=== PATIENT | male | born 1940 | race Caucasian/White ===

== ENCOUNTER 2017-03-27 06:30 | Day surgery (SDC) | payer MEDICARE, OTHER ==
[~2017-03-27 06:30] MED LIST: Lactated Ringers 1,000 ML IV SCH
[2017-03-27] MEDS ORDERED: Propofol 200 MG/20 ML SDV ONE (07:52)
[2017-03-27] MEDS ORDERED: fentaNYL 100 MCG/2 ML SDV ONE (07:52)
[2017-03-27] MEDS ORDERED: Atropine 0.4 MG/ML SDV ONE (08:06)
[2017-03-27] MEDS ORDERED: Lactated Ringers 1,000 ML ONE (08:40)
[2017-03-27 09:37] VITALS: BP 148/72
--- NOTE | 2017-03-27 16:15 | OR ---
DATE OF SURGERY: 03/27/2017 REFERRING PROVIDER: Anitha Nugent DO PREOPERATIVE DIAGNOSIS: History of colon polyps. The patient's last colonoscopy was in 2012. No family history of colon cancer. POSTOPERATIVE DIAGNOSES: 1. Five total polyps removed. a. 10 mm cecal polyp, removed with hot snare and also cautery to the base of this area. b. 5 mm polyp at 80 cm, removed with cold snare. c. 2 mm and 5 mm polyps at 75 cm, removed with cold forceps and hot snare respectively. d. 2 mm polyp at 20 cm, removed with cold forceps. 2. Moderate left-sided diverticulosis. PROCEDURE: Colonoscopy with polypectomy x5 (2 hot snares, 1 cold snare, and 2 using cold forceps). SURGEON: Nakul Tolentino M.D. ANESTHESIA: Monitored anesthesia care. BOWEL PREP: Good. DESCRIPTION OF PROCEDURE: Yusuf is a 77-year-old male was brought to the endoscopy suite after discussing risks and benefits of the procedure. Informed consent was obtained for conscious sedation and colonoscopy with or without biopsy and/or polypectomy. We also discussed possibility of missed lesions. Pre-procedure exam was unremarkable. IV, oxygen, and monitors were placed. The patient was placed in the left lateral decubitus position. Sedation was administered and a digital rectal exam was performed and was unremarkable except for mild external hemorrhoidal skin tags. Colonoscope was passed into the rectum and slowly advanced all the way to the cecum. Cecum was viewed and photographed. There was noted to be 10 mm sessile cecal polyp, which was removed with hot snare. This required 2 passes of the snare. It did lately cauterize the base as well. The colonoscope was slowly withdrawn and the mucosa was closed observed in a direct circumferential manner. The ascending colon was unremarkable. The transverse colon revealed a 5 mm polyp at 80 cm, removed with cold snare. There were also 2 mm and 5 mm polyps at 75 cm, removed with cold forceps and hot snare respectively. The descending and sigmoid colon were remarkable for some moderate diverticulosis, not acutely inflamed. Sigmoid colon also revealed 2 mm polyp at 20 cm, removed with cold forceps. Retroflexion was performed and rectal mucosa was unremarkable. Scope was removed. The patient tolerated the procedure well. The patient was monitored until that baseline status. Discharge instructions were reviewed and the patient was discharged in good condition. COMPLICATIONS: The patient did require a dose of atropine for some heart block with anesthesia. He was asymptomatic from this except for some bradycardia. TOTAL TIME: 35 minutes. ESTIMATED BLOOD LOSS: 1 mL. RECOMMENDATIONS/FOLLOWUP: We will await results of path report to determine ideal followup interval. We will have the patient hold his aspirin for 3 days to limit any chance of bleeding. I would like to kindly thank, Dr. Anitha Nugent, for this referral. DMB: 03/27/2017 08:56:46 MODL: 03/27/2017 16:04:48 /[id number]
== END 2017-03-27 10:00 | disposition home or self-care (01) ==
LOC: VM.SDS 06:30
PROVIDERS: ATTEND Family Medicine
DX: Z12.11 Encounter for screening for malignant neoplasm of colon (principal); D12.0 Benign neoplasm of cecum; D12.3 Benign neoplasm of transverse colon; K63.5 Polyp of colon; K57.30 Diverticulosis of large intestine without perforation or abscess without bleeding; K64.4 Residual hemorrhoidal skin tags; R00.1 Bradycardia, unspecified; G47.33 Obstructive sleep apnea (adult) (pediatric); I25.10 Atherosclerotic heart disease of native coronary artery without angina pectoris; I10 Essential (primary) hypertension; E78.5 Hyperlipidemia, unspecified; E78.1 Pure hyperglyceridemia; K21.9 Gastro-esophageal reflux disease without esophagitis; E11.21 Type 2 diabetes mellitus with diabetic nephropathy; Z86.73 Personal history of transient ischemic attack (TIA), and cerebral infarction without residual deficits; Z86.010 Personal history of colon polyps; Z98.890 Other specified postprocedural states; Z95.1 Presence of aortocoronary bypass graft; Z79.899 Other long term (current) drug therapy; Z79.4 Long term (current) use of insulin; Z79.82 Long term (current) use of aspirin; Z88.8 Allergy status to other drugs, medicaments and biological substances; Z98.1 Arthrodesis status
CPT/HCPCS: 00810; 45380; 45385; 82962; 88305; J0461; J2704; J3010; J7120

== ENCOUNTER 2017-04-18 11:00 | Emergency (ER) | payer MEDICARE, OTHER ==
--- NOTE | 2017-04-18 11:34 | EDM.PDOC ---
ED HPI GENERAL MEDICAL PROBLEM - General Chief Complaint: Eye Problems Stated Complaint: VISION PROBLEMS Time Seen by Provider: 04/18/17 11:10 Source of Information: Reports: Patient, Family, RN, RN Notes Reviewed History Limitations: Reports: No Limitations - History of Present Illness INITIAL COMMENTS - FREE TEXT/NARRATIVE: Patient presents to the ED at [facility] complaining of vision changes. 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 No headache or other neurological complains. Patient states he feels good otherwise. No CVA symptoms. No chest pain. No SOB. Onset Date: 04/17/17 - Related Data Allergies Allergy/AdvReac Type Severity Reaction Status Date / Time pioglitazone [From Actos] Allergy Swelling Verified 04/18/17 12:25 Home Meds: Home Meds Albiglutide [Tanzeum] 50 mg SQ WEEKLY 03/11/17 [History] Aspirin 325 mg PO BEDTIME 03/11/17 [History] Calcium Carbonate [Calcium] 600 mg PO DAILY 03/11/17 [History] Candesartan Cilexetil 1 tab PO DAILY 03/11/17 [History] Dipyridamole 25 mg PO BID 03/11/17 [History] FLUoxetine [PROzac] 20 mg PO DAILY 03/11/17 [History] Hydrocortisone Butyrate/Emoll [Locoid 0.1% Lipocream] 1 applic TOP DAILY [History] Insulin Glarg,Human.Rec.Analog [LantUS Solostar] 64 unit SQ QAM 03/11/17 [ History] Multivitamin W-Minerals/Lutein [Vision Plus Lutein Vitamin] 1 cap PO DAILY 03/11 [History] Nitroglycerin [Nitrostat] 1 tab SL ASDIRECTED PRN 03/11/17 [History] Omeprazole Magnesium [Prilosec Otc] 20 mg PO QAM 03/11/17 [History] atorvaSTATin [Lipitor] 60 mg PO BEDTIME 03/11/17 [History] metFORMIN HCl [Glucophage] 1,000 mg PO BID 03/11/17 [History] Past Medical History HEENT History: Reports: None Cardiovascular History: Reports: CAD, High Cholesterol, Hypertension Respiratory History: Reports: Sleep Apnea Gastrointestinal History: Reports: Colon Polyp, GERD Genitourinary History: Reports: None Musculoskeletal History: Reports: Arthritis Neurological History: Reports: CVA, Neuropathy, Diabetic, TIA Psychiatric History: Reports: None Endocrine/Metabolic History: Reports: Diabetes, Type II Hematologic History: Reports: None Immunologic History: Reports: None Oncologic (Cancer) History: Reports: None - Past Surgical History Head Surgeries/Procedures: Reports: None HEENT Surgical History: Reports: Cataract Surgery Cardiovascular Surgical History: Reports: Coronary Artery Bypass GI Surgical History: Reports: Colonoscopy, Hernia, Inguinal Male Surgical History: Reports: Circumcision Neurological Surgical History: Reports: Spinal Fusion Musculoskeletal Surgical History: Reports: Shoulder Surgery Oncologic Surgical History: Reports: None Social & Family History - Tobacco Use Smoking Status *Q: Former Smoker Used Tobacco, but Quit: Yes Month Tobacco Last Used: 35 years ago - Recreational Drug Use Recreational Drug Use: No Drug Use in Last 12 Months: No ED ROS GENERAL - Review of Systems Review Of Systems: See Below Constitutional: Denies: Fever, Chills, Weakness HEENT: Reports: Glasses, Vision Change. Denies: Eye Discharge, Eye Pain, Vertigo Respiratory: Denies: Shortness of Breath, Cough Cardiovascular: Denies: Chest Pain, Palpitations Skin: Reports: No Symptoms Neurological: Denies: Dizziness, Headache, Numbness, Paresthesia, Syncope, Tingling, Difficulty Walking, Change in Speech ED EXAM GENERAL W FULL EYE - Physical Exam Exam: See Below Exam Limited By: No Limitations General Appearance: Alert, No Apparent Distress Eye Exam: Bilateral Eye: EOMI, Normal Inspection, PERRL Eyelids: Bilateral: Normal Appearance Conjunctiva & Sclera: Bilateral: Normal Appearance Cornea Exam: Bilateral: Normal Appearance Extraocular Movements: Bilateral: Intact Pupils: Normal Accommodation Pupillary Size: Bilateral: 3 mm Pupillary Reaction: Bilateral: Brisk Neck: Supple Respiratory/Chest: No Respiratory Distress, Lungs Clear, Normal Breath Sounds Cardiovascular: Regular Rate, Rhythm Neurological: Alert, Oriented, CN II-XII Intact Skin Exam: Warm, Dry, Intact, Normal Color, No Rash Course - Orders/Labs/Meds Orders: Active Orders 24 hr Category Date Time Status Head wo Cont [CT] Stat Exams 04/18/17 11:11 Taken Labs: Laboratory Tests 04/18/17 04/18/17 Range/Units 11:22 11:22 WBC 6.7 (4.0-10.0) x10^3/uL RBC 4.11 L (4.5-6.0) x10^6/uL Hgb 12.9 L (14.0-18.0) g/dL Hct 37.8 L (40.0-52.0) % MCV 92.0 (78.0-93.0) fL MCH 31.4 (26.0-32.0) pg MCHC 34.1 (32.0-36.0) g/dL RDW Coeff of Nolvia 12.8 (10.0-15.0) % Plt Count 113 L (130-400) x10^3/uL Neut % (Auto) 60.2 (50.0-80.0) % Lymph % (Auto) 23.2 L (25.0-50.0) % Harding % (Auto) 9.3 (2.0-11.0) % Eos % (Auto) 6.9 H (0.0-4.0) % Baso % (Auto) 0.4 (0.2-1.2) % Sodium 140 (136-145) mmol/L Potassium 5.2 H (3.5-5.1) mmol/L Chloride 106 (98-107) mmol/L Carbon Dioxide 24 (21-32) mmol/L BUN 37 H (7-18) mg/dL Creatinine 1.7 H (0.70-1.30) mg/dL Est Cr Clr Drug Dosing TNP Estimated GFR (MDRD) 39 Glucose 216 H (74-106) mg/dL Calcium 9.4 (8.5-10.1) mg/dL - Radiology Interpretation Free Text/Narrative:: CT of Head: No acute intracranial process; right side sphenoid sinusitis - see scanned document in EMR CT Results Date: 04/18/17 CT Results Time: 12:24 Departure - Departure Time of Disposition: 12:33 Disposition: Home, Self-Care 01 Condition: good Clinical Impression: Vision changes - Discharge Information Referrals: Anitha Nugent DO [Primary Care Provider] - Forms: ED Department Discharge Additional Instructions: 1. Follow up with your professional organizer today in [place] at 3:[address] of Head is normal 3. Blood work is ok - Problem List Review Problem List Initiated/Reviewed/Updated: Yes - My Orders Last 24 Hours: My Active Orders 04/18/17 11:11 Head wo Cont [CT] Stat - Assessment/Plan Last 24 Hours: My Active Orders 04/18/17 11:11 Head wo Cont [CT] Stat
[2017-04-18 11:41] LABS: CHLORIDE,CL 106 mmol/L (98-107); SODIUM,NA 140 mmol/L (136-145)
[2017-04-18 12:34] VITALS: BP 152/60
== END 2017-04-18 12:42 | disposition home or self-care (01) ==
LOC: VM.ED 11:00
DX: H57.8 Other specified disorders of eye and adnexa (principal); E78.00 Pure hypercholesterolemia, unspecified; I10 Essential (primary) hypertension; K21.9 Gastro-esophageal reflux disease without esophagitis; M19.90 Unspecified osteoarthritis, unspecified site; E11.9 Type 2 diabetes mellitus without complications; I25.810 Atherosclerosis of coronary artery bypass graft(s) without angina pectoris; Z95.1 Presence of aortocoronary bypass graft; Z98.49 Cataract extraction status, unspecified eye; Z87.891 Personal history of nicotine dependence; Z88.8 Allergy status to other drugs, medicaments and biological substances; Z79.82 Long term (current) use of aspirin; Z79.4 Long term (current) use of insulin; Z79.84 Long term (current) use of oral hypoglycemic drugs; Z98.1 Arthrodesis status
CPT/HCPCS: 36415; 70450; 80048; 85025; 99284; 99284-GF

== ENCOUNTER 2017-07-04 13:02 | Observation (INO) | payer MEDICARE, OTHER ==
[2017-07-04] MEDS ORDERED: Acetaminophen 325 MG Tab PO PRN (13:19)
[2017-07-04] MEDS ORDERED: Nitroglycerin 0.4 MG Tab.SL SL PRN (13:33)
--- NOTE | 2017-07-04 14:01 | PCM.HP ---
H&P History of Present Illness - General Date of Service: 07/04/17 Admit Problem/Dx: Admission Diagnosis/Problem Admission Diagnosis/Problem Mobitz type I incomplete atrioventricular block - History of Present Illness Initial Comments - Free Text/Narative: 77 yo male is admitted to observation from the [facility]. Patient presented to the clinic today for concerns of SOB over the last 2 days. This was occurring with activity. No SOB at rest or while lying flat. Did have an episode of chest pain yesterday after experiencing the SOB. This resolved after 5 minutes. Patient did admit to a productive cough but stated it has been long-term and unchanged. Production occurs in the AM. No fevers or chills. Has not experienced UR sx. Lab work, CXR, and EKG were completed. WBC was 6.5 with neutrophils of 4.1. Creatinine was 1.25 and GFR was 56. Troponin and d-dimer were negative. EKG showed a Mobitz I with a HR of 46 BPM. [facility] was contacted and the rolloff truck driver and police inspector read the EKG. [employer] did not recommend treatment based on the EKG results. - Related Data Allergies/Adverse Reactions: Allergies Allergy/AdvReac Type Severity Reaction Status Date / Time pioglitazone [From Actos] Allergy Swelling Verified 04/18/17 12:25 Home Medications: Home Meds Albiglutide [Tanzeum] 50 mg SQ WEEKLY 03/11/17 [History] Aspirin 325 mg PO BEDTIME 03/11/17 [History] Candesartan Cilexetil 1 tab PO DAILY 03/11/17 [History] Dipyridamole 25 mg PO BID 03/11/17 [History] FLUoxetine [PROzac] 20 mg PO DAILY 03/11/17 [History] Hydrocortisone Butyrate/Emoll [Locoid 0.1% Lipocream] 1 applic TOP DAILY [History] Insulin Glarg,Human.Rec.Analog [LantUS Solostar] 64 unit SQ QAM 03/11/17 [ History] Nitroglycerin [Nitrostat] 1 tab SL ASDIRECTED PRN 03/11/17 [History] Omeprazole Magnesium [Prilosec Otc] 20 mg PO QAM 03/11/17 [History] atorvaSTATin [Lipitor] 60 mg PO BEDTIME 03/11/17 [History] metFORMIN HCl [Glucophage] 1,000 mg PO BID 03/11/17 [History] Carvedilol 12.5 mg PO BID 07/04/17 [History] Past Medical History HEENT History: Reports: None, Retinal Detachment, Other (See Below) Other HEENT History: repaired 04/30/17 Cardiovascular History: Reports: Bypass, CAD, High Cholesterol, Hypertension Respiratory History: Reports: Sleep Apnea Gastrointestinal History: Reports: Colon Polyp, GERD Genitourinary History: Reports: None Musculoskeletal History: Reports: Arthritis Neurological History: Reports: CVA, Neuropathy, Diabetic, TIA Psychiatric History: Reports: None Endocrine/Metabolic History: Reports: Diabetes, Type II Hematologic History: Reports: None Immunologic History: Reports: None Oncologic (Cancer) History: Reports: None - Past Surgical History Head Surgeries/Procedures: Reports: None HEENT Surgical History: Reports: Cataract Surgery Cardiovascular Surgical History: Reports: Coronary Artery Bypass GI Surgical History: Reports: Colonoscopy, Hernia, Inguinal Male Surgical History: Reports: Circumcision Neurological Surgical History: Reports: Other (See Below) Other Neurological Surgeries/Procedures: plate in neck Musculoskeletal Surgical History: Reports: Shoulder Surgery, Other (See Below) Other Musculoskeletal Surgeries/Procedures:: plate in neck Oncologic Surgical History: Reports: None Social & Family History - Tobacco Use Smoking Status *Q: Former Smoker Used Tobacco, but Quit: No Month Tobacco Last Used: 35 years ago - Caffeine Use Caffeine Use: Reports: Coffee - Recreational Drug Use Recreational Drug Use: No Drug Use in Last 12 Months: No H&P Review of Systems - Review of Systems: Review Of Systems: See Below General: Denies: Fever, Chills HEENT: Denies: Rhinitis, Post Nasal Drip, Sinus Congestion, Sore Throat Pulmonary: Reports: Shortness of Breath (activity), Cough Cardiovascular: Reports: Chest Pain. Denies: Palpitations, Edema Neurological: Denies: Gait Disturbance Exam - Exam Exam: See Below - Vital Signs Vital Signs: Last Vital Signs Temp 36.6 C 07/04/17 13:19 Pulse 62 07/04/17 13:19 Resp 20 07/04/17 13:19 BP 158/72 H 07/04/17 13:19 Pulse Ox 98 07/04/17 13:19 Weight: 87.543 kg - Exam General: Alert, Oriented HEENT: Conjunctiva Clear, Mucosa Moist & Paloma, Posterior Pharynx Clear, Pupils Equal, Pupils Reactive, TMs Clear Neck: No: Carotid Bruit Lungs: Clear to Auscultation, Normal Respiratory Effort. No: Decreased Breath Sounds, Crackles, Rales, Rhonchi, Wheezing Cardiovascular: Irregular Rhythm, Bradycardia Extremities: No Pedal Edema Skin: Warm, Dry Neurological: Normal Gait Neuro Extensive - Mental Status: Alert, Oriented x3, Normal Mood/Affect, Normal Cognition, Memory Intact Psychiatric: Alert *Q Meaningful Use (ADM) - VTE *Q VTE Criteria *Q: - Stroke *Q Stroke Criteria *Q: - AMI *Q AMI Criteria *Q: Problem List Initiated/Reviewed/Updated: Yes Orders Last 24hrs: Active Orders 24 hr Category Date Time Status Admission Status [Patient Status] [ADT] Routine ADT 07/04/17 13:03 Active Patient Status [ADT] Routine ADT 07/04/17 13:19 Ordered Cardiac Monitoring [RC] . DIRECTED Care 07/04/17 13:15 Active Intake and Output [RC] QSHIFT Care 07/04/17 13:21 Ordered Up ad Jennifer [RC] ASDIRECTED Care 07/04/17 13:19 Ordered Vital Signs [RC] Q4H Care 07/04/17 13:19 Ordered Regular Diet [DIET] Diet 07/04/17 Lunch Ordered Acetaminophen [Tylenol] Med 07/04/17 13:19 Ordered 650 mg PO Q4H PRN Albiglutide [Tanzeum] Med 07/04/17 13:45 Ordered 50 mg SQ WEEKLY Aspirin [Aspirin] Med 07/04/17 20:00 Ordered 325 mg PO BEDTIME Calcium Carbonate Med 07/05/17 08:00 Ordered 600 mg PO DAILY Candesartan Cilexetil [Candesartan Cilexetil] Med 07/05/17 08:00 Ordered 1 tab PO DAILY Dipyridamole Med 07/04/17 20:00 Ordered 25 mg PO BID FLUoxetine [PROzac] Med 07/05/17 08:00 Ordered 20 mg PO DAILY Hydrocortisone Butyrate/Emoll [Locoid 0.1% Lipocream] Med 07/05/17 08:00 Ordered 1 applic TOP DAILY Insulin Glarg,Human.Rec.Analog Med 07/05/17 08:00 Ordered 64 unit SQ QAM Multivitamin W-Minerals/Lutein [Vision Plus Lutein Med 07/05/17 08:00 Ordered Vitamin] 1 cap PO DAILY Nitroglycerin [Nitrostat] Med 07/04/17 13:33 Ordered 1 tab SL ASDIRECTED PRN Omeprazole Magnesium [Prilosec Otc] Med 07/05/17 08:00 Ordered 20 mg PO QAM atorvaSTATin [Lipitor] Med 07/04/17 20:00 Ordered 60 mg PO BEDTIME metFORMIN HCl [Glucophage] Med 07/04/17 20:00 Ordered 1,000 mg PO BID Code Status [Resuscitation Status] Routine Resus Stat 07/04/17 13:22 Ordered Medication Orders Acetaminophen (Tylenol) 650 mg PO Q4H PRN PRN Reason: analgesia/fever Aspirin (Ecotrin) 325 mg PO BEDTIME [place] Atorvastatin Calcium (Lipitor) 60 mg PO BEDTIME [facility] Dipyridamole (Dipyridamole) 25 mg PO BID [facility] Fluoxetine HCl (Prozac) 20 mg PO DAILY [facility] Losartan Potassium (Cozaar) 100 mg PO DAILY [facility] Metformin HCl (Glucophage) 1,000 mg PO BIDMEALS [facility] Multivitamins/Minerals (Prosight) 1 tab PO DAILY [facility] Nitroglycerin (Nitrostat) 0.4 mg SL ASDIRECTED PRN PRN Reason: Chest Pain Non-Formulary Medication (Albiglutide [Tanzeum]) 50 mg SQ WEEKLY [facility] Non-Formulary Medication (Calcium Carbonate) 600 mg PO DAILY [facility] Non-Formulary Medication (Hydrocortisone Butyrate/Emoll [Locoid 0.1% Lipocream] ) 1 applic TOP DAILY [facility] Non-Formulary Medication (Insulin Glarg,Human.Rec.Analog) 64 unit SQ QAM [facility] Omeprazole (Omeprazole) 20 mg PO DAILY@0700 [facility] Assessment/Plan Comment:: Mobitz I heart block Shortness of breath on exertion Hypertension CAD with h/o bypass Diabetes mellitus II 1. Observation status 2. Monitor with Telemetry 3. Hold Coreg 4. Repeat troponin at 6 hours 5. Check BNP 6. Full code 7. Start lasix 20 mg for blood pressure
[2017-07-04] MEDS: metFORMIN 500 MG Tab PO SCH (17:09)
[2017-07-04] MEDS: Furosemide 20 MG Tab PO SCH (18:11)
[2017-07-04] MEDS ORDERED: Aspirin 325 MG Tab.EC PO SCH (20:00)
[2017-07-04] MEDS ORDERED: atorvaSTATin 40 MG Tab PO SCH (20:00)
[2017-07-04] MEDS: Sodium Chloride 0.9% 10 ML Syringe FLUSH PRN (20:42)
[2017-07-05] MEDS ORDERED: Omeprazole 20 MG Cap.CR PO SCH (07:00)
[2017-07-05] MEDS: Sodium Chloride 0.9% 10 ML Syringe FLUSH PRN (07:47)
[2017-07-05] MEDS: Furosemide 20 MG Tab PO SCH (07:47)
[2017-07-05] MEDS: metFORMIN 500 MG Tab PO SCH (07:48)
[2017-07-05] MEDS ORDERED: Losartan 50 MG Tab PO SCH (08:00)
[2017-07-05] MEDS ORDERED: [UNRECOGNIZED DRUG - OTHER] TOP SCH (08:00)
[2017-07-05] MEDS ORDERED: Calcium Carbonate/Vitamin D3 1250 MG-200 Unit Tab PO SCH (08:00)
[2017-07-05] MEDS ORDERED: HYDROCORTISONE BUTYRATE TOP SCH (08:00)
[2017-07-05] MEDS ORDERED: Insulin Detemir 100 Units/ML 3 ML Pen SUBCUT SCH (08:00)
[2017-07-05] MEDS ORDERED: FLUoxetine 20 MG Cap PO SCH (08:00)
[2017-07-05] MEDS ORDERED: Beta-Carotene (Vitamin A) w/Vitamin C & E plus Minerals Tab PO SCH (08:00)
[2017-07-05 08:02] LABS: CHLORIDE,CL 105 mmol/L (98-107); SODIUM,NA 141 mmol/L (136-145)
[2017-07-05] MEDS ORDERED: Isosorbide Mononitrate 30 MG Tab.ER PO SCH (10:15)
[2017-07-05 10:20] VITALS: BP 146/68
--- NOTE | 2017-07-06 00:52 | DISCH ---
PRIMARY DISCHARGE DIAGNOSES: 1. Acute on chronic diastolic heart failure exacerbation with a known history of EF of 50% based on echo back in 05/2016. 2. Shortness of breath related to heart failure and bradycardia. 3. Secondary degree heart block, Wenckebach, probably related to Coreg. Coreg will be on hold. 4. Known history of coronary artery disease with angina related to heart failure. 5. Essential hypertension. Blood pressure is elevated, probably due to heart failure and increased fluid. 6. Type 2 diabetes, longstanding. 7. Sleep apnea, compliant with CPAP, but occasionally it comes off per patient report. 8. Remote history of stroke. 9. History of carotid artery stenosis status post surgery. 10.History of cervical spinal surgery due to radiculopathy, resolved. REASON FOR ADMISSION: On the date of admission, this 77-year-old male came into the clinic. He had 2 days of increasing shortness of breath with activity. He was trying to walk like 100 feet from his shop carrying something. He had to slow down, take breaks, then when he sat down, he realized he had some chest discomfort that lasted about 5 minutes, but he did not take nitro. He has a known history of coronary disease with bypass surgery years ago. He had some symptoms of fatigue and shortness of breath last summer and was evaluated with echo and angiogram due to wall motion abnormalities on the echo. His angiogram did show some patent bypass grafts and medical management was recommended. He was on Coreg, but unfortunately his heart rates were low down into the 40s at times, but he was not symptomatic. He denies feeling lightheaded or dizzy. When he got hooked up to the monitor at the hospital, his heart rate was 36, but it improved after that to be in the 60s back to a first degree AV block, which he had known to have for quite some time. His EKG from the clinic was faxed to Cardiology and they did not feel it was a Mobitz type 2. Otherwise, he had no further chest discomfort during his stay. He was only short of breath after he got up and had a shower and walked around in the halls, but his oxygen saturations remained okay. He did have negative troponin x3. His proBNP was elevated at 4804, so he was given a dose of oral Lasix and he did diurese for 1.8 L. Otherwise, he denied any leg swelling or orthopnea prior to discharge, but he did gain about 4 pounds. He had not had any previous admissions for heart failure, but he had previously been on Lasix or hydrochlorothiazide in the past, which was stopped due to renal insufficiency. During his stay, his kidney function was excellent. It was 1.1 on discharge. Potassium was 3.8, white count normal, hemoglobin 12.2, platelets 128, and he did not receive Lovenox for DVT prophylaxis as he was on observation and went home within 24 hours. DISCHARGE PLANS AND INSTRUCTIONS: He will follow up in the clinic with Dr. Nugent on , 07/10 with a BMP at that visit. He will be on Imdur 30 mg daily and Lasix 20 mg daily until that visit. Coreg will also be on hold due to slow heart rates. We could consider starting it at a lower dose, like 3.125 b.i.d. if needed in the future. Otherwise, we will reschedule him for an outpatient echo, time and date to be determined. He is not on a Beta Carrillo due to bradycardia but is taking an ARB due to intolerance to IVORY inhibitors. RETAA: 07/05/2017 10:47:08 MODL: 07/06/2017 00:46:15 /[id number]
[2017-07-06] MEDS ORDERED: ALBIGLUTIDE 50 MG SQ SCH (08:00)
== END 2017-07-05 10:45 | disposition home or self-care (01) ==
LOC: VM.MS 13:03
PROVIDERS: ADMIT Physician Assistant; ATTEND Internal Medicine
DX: I11.0 Hypertensive heart disease with heart failure (principal); I50.33 Acute on chronic diastolic (congestive) heart failure; I44.1 Atrioventricular block, second degree; I25.119 Atherosclerotic heart disease of native coronary artery with unspecified angina pectoris; G47.30 Sleep apnea, unspecified; E78.00 Pure hypercholesterolemia, unspecified; K21.9 Gastro-esophageal reflux disease without esophagitis; E11.40 Type 2 diabetes mellitus with diabetic neuropathy, unspecified; Z87.19 Personal history of other diseases of the digestive system; Z86.73 Personal history of transient ischemic attack (TIA), and cerebral infarction without residual deficits; Z87.891 Personal history of nicotine dependence; Z99.89 Dependence on other enabling machines and devices; Z88.8 Allergy status to other drugs, medicaments and biological substances; Z79.82 Long term (current) use of aspirin; Z79.4 Long term (current) use of insulin; Z79.84 Long term (current) use of oral hypoglycemic drugs; Z79.899 Other long term (current) drug therapy; Z95.1 Presence of aortocoronary bypass graft; Z98.890 Other specified postprocedural states
CPT/HCPCS: 36415; 80048; 83880; 84484; 85025; A9270; J1815; J7050; G0378

== ENCOUNTER 2019-08-09 14:01 | Emergency (ER) | payer MEDICARE, OTHER ==
--- NOTE | 2019-08-09 14:38 | EDM.PDOC ---
ED HPI GENERAL MEDICAL PROBLEM - General Stated Complaint: COUGH SHORT OF BREATH Time Seen by Provider: 08/09/19 14:38 Source of Information: Reports: Patient, Old Records, Significant Other, Other ( Dr. Anitha Nugent) - History of Present Illness INITIAL COMMENTS - FREE TEXT/NARRATIVE: The patient came into the clinic and was lethargic. He has had a bout of pneumonia recently. Chest x-ray transpired. EKG transpired. Dr. Nugent was concerned about a block. His heart rate was into the 30s. He also had a CT of the chest. No pulmonary emboli. He does have a high BNP but his lungs do not sound particularly wet. He came over and he has been on the monitor and the monitor has been recording him to be in the upper 30s to 5152. I did talk to [facility] at 3:15 and they accepted the patient hospitalist Dr. Wu. We will fax them the EKG and pertinent lab values. Patient will go by ground ambulance. Onset: Today Duration: Getting Worse Location: Reports: Generalized - Related Data Allergies Allergy/AdvReac Type Severity Reaction Status Date / Time pioglitazone [From Actos] Allergy Swelling Verified 08/09/19 15:17 Home Meds: Home Meds Albiglutide [Tanzeum] 50 mg SQ WEEKLY 03/11/17 [History] Aspirin 325 mg PO BEDTIME 03/11/17 [History] Candesartan Cilexetil 1 tab PO DAILY 03/11/17 [History] Dipyridamole 25 mg PO BID 03/11/17 [History] FLUoxetine [PROzac] 20 mg PO DAILY 03/11/17 [History] Hydrocortisone Butyrate/Emoll [Locoid 0.1% Lipocream] 1 applic TOP DAILY [History] Insulin Glarg,Human.Rec.Analog [LantUS Solostar] 64 unit SQ QAM 03/11/17 [ History] Nitroglycerin [Nitrostat] 1 tab SL ASDIRECTED PRN 03/11/17 [History] Omeprazole Magnesium [Prilosec Otc] 20 mg PO QAM 03/11/17 [History] atorvaSTATin [Lipitor] 60 mg PO BEDTIME 03/11/17 [History] metFORMIN HCl [Glucophage] 1,000 mg PO BID 03/11/17 [History] Furosemide [Lasix] 20 mg PO DAILY #30 tablet 07/05/17 [Rx] Isosorbide Mononitrate [Imdur] 30 mg PO DAILY #30 tab.er 07/05/17 [Rx] Past Medical History HEENT History: Reports: None, Retinal Detachment, Other (See Below) Other HEENT History: repaired 04/30/17 Cardiovascular History: Reports: Bypass, CAD, High Cholesterol, Hypertension Respiratory History: Reports: Sleep Apnea Gastrointestinal History: Reports: Colon Polyp, GERD Genitourinary History: Reports: None Musculoskeletal History: Reports: Arthritis Neurological History: Reports: CVA, Neuropathy, Diabetic, TIA Psychiatric History: Reports: None Endocrine/Metabolic History: Reports: Diabetes, Type II Hematologic History: Reports: None Immunologic History: Reports: None Oncologic (Cancer) History: Reports: None - Past Surgical History Head Surgeries/Procedures: Reports: None HEENT Surgical History: Reports: Cataract Surgery Cardiovascular Surgical History: Reports: Coronary Artery Bypass GI Surgical History: Reports: Colonoscopy, Hernia, Inguinal Male Surgical History: Reports: Circumcision Neurological Surgical History: Reports: Other (See Below) Other Neurological Surgeries/Procedures: plate in neck Musculoskeletal Surgical History: Reports: Shoulder Surgery, Other (See Below) Other Musculoskeletal Surgeries/Procedures:: plate in neck Oncologic Surgical History: Reports: None Social & Family History - Caffeine Use Caffeine Use: Reports: Coffee ED ROS GENERAL - Review of Systems Review Of Systems: ROS reveals no pertinent complaints other than HPI. ED EXAM, GENERAL - Physical Exam Exam: See Below Exam Limited By: No Limitations General Appearance: Alert, Mild Distress, Moderate Distress Respiratory/Chest: No Respiratory Distress, Lungs Clear Cardiovascular: No Edema, No Murmur, Bradycardia, Irregularly Irregular GI/Abdominal: Normal Bowel Sounds Neurological: Alert, Oriented Psychiatric: Normal Affect Skin Exam: Warm, Dry Course - Vital Signs Last Recorded V/S: Last Vital Signs Temp 36.6 C 08/09/19 14:05 Pulse 50 L 08/09/19 14:05 Resp 16 08/09/19 14:05 BP 140/44 L 08/09/19 14:05 Pulse Ox 95 08/09/19 14:05 - Orders/Labs/Meds Orders: Active Orders 24 hr Category Date Time Status URIC ACID [CHEM] Stat Lab 08/09/19 12:05 Received Departure - Departure Time of Disposition: 15:28 Disposition: DC/Tfer to Acute Hospital 02 Clinical Impression: Bradycardia - Discharge Information *PRESCRIPTION DRUG MONITORING PROGRAM REVIEWED*: No *COPY OF PRESCRIPTION DRUG MONITORING REPORT IN PATIENT YOKASTA: No Forms: Interfacility Transfer EMTALA - My Orders Last 24 Hours: My Active Orders 08/09/19 12:05 URIC ACID [CHEM] Stat - Assessment/Plan Last 24 Hours: My Active Orders 08/09/19 12:05 URIC ACID [CHEM] Stat
[2019-08-09 15:34] VITALS: BP 125/53; PULSE 37
== END 2019-08-09 16:05 | disposition short-term general hospital (02) ==
LOC: VM.ED 14:01
DX: R00.1 Bradycardia, unspecified (principal); I10 Essential (primary) hypertension; E11.40 Type 2 diabetes mellitus with diabetic neuropathy, unspecified; K21.9 Gastro-esophageal reflux disease without esophagitis; I25.10 Atherosclerotic heart disease of native coronary artery without angina pectoris; E78.00 Pure hypercholesterolemia, unspecified; M19.90 Unspecified osteoarthritis, unspecified site; Z88.8 Allergy status to other drugs, medicaments and biological substances; Z79.4 Long term (current) use of insulin; Z79.899 Other long term (current) drug therapy
CPT/HCPCS: 36415; 84550; 99284-GF; 99285

== ENCOUNTER 2021-05-24 06:47 | Day surgery (SDC) | payer MEDICARE, OTHER ==
[2021-05-24] MEDS: Lactated Ringers 1,000 ML IV SCH (07:08)
[2021-05-24] MEDS ORDERED: Propofol 200 MG/20 ML SDV ONE ×2 (08:08→08:37)
[2021-05-24] MEDS ORDERED: fentaNYL 100 MCG/2 ML SDV ONE (08:08)
[2021-05-24 09:23] VITALS: BP 125/61; PULSE 75
--- NOTE | 2021-05-24 14:07 | OR ---
DATE OF SURGERY: 05/24/2021. REFERRING PROVIDER: Anitha Nugent DO PRE-OPERATIVE DIAGNOSIS: History of colon polyps. Last colonoscopy was about 4 to 5 years ago per patient report. POST-OPERATIVE DIAGNOSES: 1. Total of 7 polyps removed today. a. 10 mm cecal polyp removed using hot snare. b. 8 mm polyp at 80 cm, removed using hot snare. c. 4 mm polyp at 75 cm, removed using hot snare. d. 2 mm polyp x3 at 25 cm, all removed using cold forceps. e. 5 mm polyp at 15 cm, removed using hot snare. 2. Moderate scattered diverticulosis, left greater than right. PROCEDURE: Colonoscopy with polypectomy x7 (4 using hot snare and 3 using cold forceps). SURGEON: Nakul Tolentino M.D. ANESTHESIA: Monitored anesthesia care. BOWEL PREP: Good. Yusuf is a 81-year-old male who was brought to the endoscopy suite after discussing risks and benefits of the procedure. Informed consent was obtained for conscious sedation and colonoscopy with or without biopsy and/or polypectomy. We also discussed possibility of missed lesions. Pre-procedure exam was unremarkable. IV, oxygen, and monitors were placed. The patient was placed in the left lateral decubitus position. Sedation was administered and a digital rectal exam was performed and unremarkable. Colonoscope was passed into the rectum and slowly advanced all the way to the cecum. Cecum was viewed and photographed. Within the entry to the cecum, there was noted to be a 10 mm sessile polyp. This was photographed and removed using hot snare. A couple passes of cold snare at the periphery were also used and then tip used to cauterize tiny bit of residual tissue at the periphery. The colonoscope was slowly withdrawn and the mucosa was closed observed in a direct circumferential manner. The ascending colon was remarkable for 8 mm polyp at 80 cm, removed using hot snare. There was also a 4 mm polyp at 75 cm, removed using hot snare. The transverse colon was unremarkable. The descending colon and sigmoid colon revealed moderate diverticulosis. There was also some mild scattered diverticulosis to the right colon and transverse colon. Sigmoid colon did reveal 2 mm polyp x3 between 25 and 20 cm. These were all removed using cold forceps. At 15 cm, there was noted to be 5 mm polyp, removed using hot snare. Retroflexion was performed and rectal mucosa was unremarkable. Scope was removed. The patient tolerated the procedure well. The patient was monitored until that baseline status. Discharge instructions were reviewed and the patient was discharged in good condition. COMPLICATIONS: None. TOTAL TIME: 36 minutes. ESTIMATED BLOOD LOSS: About 1 mL. RECOMMENDATIONS/FOLLOW-UP: We will await results of path report to determine ideal followup interval. I will have the patient continue to hold his Plavix for 3 days. He is okay to resume his aspirin 81 mg daily tomorrow. I would like to kindly thank Anitha Nugent for this referral. DMB: 05/24/2021 09:20:52 MODL: 05/24/2021 13:30:10 /[id number]
== END 2021-05-24 10:00 | disposition home or self-care (01) ==
LOC: VM.SDS 06:47
PROVIDERS: ATTEND Family Medicine
DX: Z12.11 Encounter for screening for malignant neoplasm of colon (principal); D12.0 Benign neoplasm of cecum; D12.6 Benign neoplasm of colon, unspecified; K57.30 Diverticulosis of large intestine without perforation or abscess without bleeding; I25.10 Atherosclerotic heart disease of native coronary artery without angina pectoris; E11.21 Type 2 diabetes mellitus with diabetic nephropathy; I11.0 Hypertensive heart disease with heart failure; I50.30 Unspecified diastolic (congestive) heart failure; G47.33 Obstructive sleep apnea (adult) (pediatric); I50.42 Chronic combined systolic (congestive) and diastolic (congestive) heart failure; N17.9 Acute kidney failure, unspecified; Z88.8 Allergy status to other drugs, medicaments and biological substances; Z79.899 Other long term (current) drug therapy; Z86.010 Personal history of colon polyps; Z86.73 Personal history of transient ischemic attack (TIA), and cerebral infarction without residual deficits; Z87.891 Personal history of nicotine dependence; Z98.890 Other specified postprocedural states
CPT/HCPCS: 00812; 82947; J2704; J3010; J7120

== ENCOUNTER 2021-05-24 12:59 | Emergency (ER) | payer MEDICARE, OTHER ==
[2021-05-24] MEDS ORDERED: Sodium Chloride 0.9% 1,000 ML IV ONE (13:27)
[2021-05-24] MEDS: Lactated Ringers 1,000 ML IV ONE (13:33)
--- NOTE | 2021-05-24 13:55 | EDM.PDOC ---
ED HPI GENERAL MEDICAL PROBLEM - General Chief Complaint: Gastrointestinal Problem Stated Complaint: ER Time Seen by Provider: 05/24/21 13:25 Source of Information: Reports: Patient, Family History Limitations: Reports: No Limitations - History of Present Illness INITIAL COMMENTS - FREE TEXT/NARRATIVE: Patient had a screening colonoscopy this morning and was sent home at about 10 am. He is on plavix and aspirin and held the plavix for 5 days prior but has continued his aspirin. He had a muffin post op and was told that he had 7 polyps, two large ones. He went home ( out of town) and when they arrived he had a bowel movement that was al bright red blood. He had some minimal right sided abdominal discomfort. They called the surgeon that did the colonoscopy and he was told to return to the ED. EMS was called and while waiting he had 4 more bright red stools that filled the toliet. He felt light headed and dizzy. He recieved 500 ml normal saline en route as his initial blood pressure was 70 systolic. He continues to complain of some minimal right sided abdominal pain. Other than that he has no complaints. Surgeon is aware that he is here. Onset: Today, Sudden Duration: Hour(s): Treatments STUDENT ACCOUNTS MANAGER: Reports: IV/IO Other Treatments STUDENT ACCOUNTS MANAGER: NS bolus 450 ml 0 Pain Score (Numeric/FACES): 0 - Related Data Allergies Allergy/AdvReac Type Severity Reaction Status Date / Time pioglitazone [From Actos] Allergy Swelling Verified 05/24/21 07:10 Home Meds: Home Meds Albiglutide [Tanzeum] 50 mg SQ WEEKLY 03/11/17 [History] Dipyridamole 25 mg PO BID 03/11/17 [History] FLUoxetine [PROzac] 20 mg PO DAILY 03/11/17 [History] Insulin Glarg,Human.Rec.Analog [LantUS Solostar] 30 unit SQ QAM 03/11/17 [History] Nitroglycerin [Nitrostat] 1 tab SL ASDIRECTED PRN 03/11/17 [History] atorvaSTATin [Lipitor] 60 mg PO BEDTIME 03/11/17 [History] Isosorbide Mononitrate [Imdur] 30 mg PO DAILY #30 tab.er 07/05/17 [Rx] Amoxicillin 2,000 mg PO ASDIRECTED 04/02/21 [History] Aspirin [Aspirin EC] 81 mg PO DAILY 04/02/21 [History] Benzonatate [Tessalon Perle] 100 mg PO QID PRN 04/02/21 [History] Clopidogrel [Plavix] 75 mg PO DAILY 04/02/21 [History] Cyanocobalamin (Vitamin B-12) [Vitamin B-12] 1,000 mcg PO DAILY 04/02/21 [History] Dulaglutide [Trulicity] 0.75 mg SQ Q7D 04/02/21 [History] FLUoxetine [PROzac] 10 mg PO DAILY 04/02/21 [History] Furosemide [Lasix] 20 mg PO BID 04/02/21 [History] Insulin Aspart [NovoLOG] 5 - 10 unit SQ WITHMEALSANDBED PRN 04/02/21 [History] Isosorbide Mononitrate [Imdur] 60 mg PO DAILY 04/02/21 [History] Metoclopramide [Reglan] 5 mg PO DAILY 04/02/21 [History] Pantoprazole Sodium [Protonix] 20 mg PO DAILY 04/02/21 [History] Pirfenidone [Esbriet] 801 mg PO TID 04/02/21 [History] Sennosides/Docusate Sodium [Senna-S] 1 each PO BID 04/02/21 [History] lisinopriL [Lisinopril] 2.5 mg PO DAILY 04/02/21 [History] metFORMIN [Glucophage] 500 mg PO DAILY 04/02/21 [History] ondansetron HCL [Zofran] 4 mg PO Q4H PRN 04/02/21 [History] Past Medical History HEENT History: Reports: Retinal Detachment, Other (See Below) Other HEENT History: repaired 04/30/17; diabetic retinopathy Cardiovascular History: Reports: Afib, Bypass, CAD, Heart Failure, High Cholesterol, Hypertension, Other (See Below) Other Cardiovascular History: carotid artery stenosis; 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; symptomatic tiana; Respiratory History: Reports: Pulmonary Fibrosis, Sleep Apnea, Other (See Below) Other Respiratory History: lung nodule; ILD; hypoxia; acute on chronic respiratory failure Gastrointestinal History: Reports: Colon Polyp, GERD Genitourinary History: Reports: Diabetic Nephropathy, Other (See Below) Other Genitourinary History: hx of CONNIE Musculoskeletal History: Reports: Arthritis Neurological History: Reports: CVA, TIA Psychiatric History: Reports: None Endocrine/Metabolic History: Reports: Diabetes, Type II, Other (See Below) Other Endocrine/Metabolic History: hypertriglyceridemia; hyperkalemia Hematologic History: Reports: None Immunologic History: Reports: None Oncologic (Cancer) History: Reports: None - Past Surgical History Head Surgeries/Procedures: Reports: None HEENT Surgical History: Reports: Cataract Surgery, Retinal, Other (See Below) Other HEENT Surgeries/Procedures: teeth extraction; vitrectomy Cardiovascular Surgical History: Reports: Carotid Endarterectomy, Coronary Artery Bypass Respiratory Surgical History: Reports: Other (See Below) Other Respiratory Surgeries/Procedures: bronchoscopy GI Surgical History: Reports: Colonoscopy, Hernia, Inguinal Male Surgical History: Reports: Circumcision Neurological Surgical History: Reports: Spinal Fusion, Other (See Below) Other Neurological Surgeries/Procedures: plate in neck Musculoskeletal Surgical History: Reports: Carpal Tunnel, Shoulder Surgery, Other (See Below) Other Musculoskeletal Surgeries/Procedures:: plate in neck Oncologic Surgical History: Reports: None Social & Family History - Caffeine Use Caffeine Use: Reports: Coffee ED ROS GENERAL - Review of Systems Review Of Systems: See Below Constitutional: Reports: No Symptoms, Fatigue. Denies: Fever, Chills HEENT: Reports: No Symptoms. Denies: Eye Pain, Nosebleed, Sinus Problem, Throat Swelling Respiratory: Reports: No Symptoms. Denies: Shortness of Breath, Cough Cardiovascular: Reports: Lightheadedness Endocrine: Reports: No Symptoms GI/Abdominal: Reports: Abdominal Pain, Bloody Stool (x5). Denies: Nausea, Vomiting : Reports: No Symptoms Musculoskeletal: Reports: No Symptoms. Denies: Neck Pain Skin: Reports: No Symptoms. Denies: Cyanosis Neurological: Reports: No Symptoms Psychiatric: Reports: No Symptoms ED EXAM, GI/ABD - Physical Exam Exam: See Below Exam Limited By: No Limitations General Appearance: Alert, WD/WN, No Apparent Distress Eyes: Bilateral: EOMI (PERRLA), Pale Conjunctiva Ears: Normal External Exam Nose: Normal Inspection, Normal Mucosa, No Blood Throat/Mouth: Normal Inspection, Normal Lips, Normal Teeth, Normal Voice Head: Atraumatic, Normocephalic Neck: Normal Inspection, Supple, Non-Tender, Full Range of Motion Respiratory/Chest: No Respiratory Distress, Lungs Clear, Normal Breath Sounds, Chest Non-Tender Cardiovascular: Normal Peripheral Pulses, Regular Rate, Rhythm, No Edema, No Murmur GI/Abdominal Exam: No Organomegaly, No Distention, Tender (right abdomen), Abnormal Bowel Sounds Extremities: Normal Inspection, Normal Range of Motion, Non-Tender, No Pedal Edema Neurological: Alert, Oriented, CN II-XII Intact, Normal Cognition Course - Vital Signs Last Recorded V/S: Last Vital Signs Temp 36.3 C 05/24/21 13:16 Pulse 70 05/24/21 13:16 Resp 16 05/24/21 13:16 BP 124/64 05/24/21 13:16 Pulse Ox 98 05/24/21 13:16 - Orders/Labs/Meds Orders: Active Orders 24 hr Category Date Time Status TYPE AND SCREEN [BBK] Stat Lab 05/24/21 13:50 Results Lactated Ringers [Ringers, Lactated] 1,000 ml Med 05/24/21 14:45 Active IV ASDIRECTED Medication Orders Lactated Ringer's (Ringers, Lactated) 1,000 mls @ 125 mls/hr IV ASDIRECTED GA Last Admin: 05/24/21 14:58 Dose: 125 mls/hr Documented by: TERRIE Labs: Laboratory Tests 05/24/21 05/24/21 05/24/21 Range/Units 13:50 13:50 13:50 WBC 12.8 H (4.0-10.0) x10^3/uL RBC 3.44 L (4.5-6.0) x10^6/uL Hgb 11.2 L (14.0-18.0) g/dL Hct 31.6 L (40.0-52.0) % MCV 91.9 (78.0-93.0) fL MCH 32.6 H (26.0-32.0) pg MCHC 35.4 (32.0-36.0) g/dL RDW Coeff of Nolvia 12.1 (10.0-15.0) % Plt Count 120 L (130-400) x10^3/uL Neut % (Auto) 79.5 (50.0-80.0) % Lymph % (Auto) 8.8 L (25.0-50.0) % [place] % (Auto) 10.6 (2.0-11.0) % Eos % (Auto) 0.9 (0.0-4.0) % Baso % (Auto) 0.2 (0.2-1.2) % Sodium 138 (136-145) mmol/L Potassium 4.1 (3.5-5.1) mmol/L Chloride 104 (98-107) mmol/L Carbon Dioxide 26 (21-32) mmol/L Anion Gap 12.1 (5-15) mmol/L BUN 13 (7-18) mg/dL Creatinine 1.4 H (0.70-1.30) mg/dL Est Cr Clr Drug Dosing 38.61 mL/min Estimated GFR (MDRD) 49 Glucose 192 H (70-99) mg/dL Calcium 8.4 L (8.5-10.1) mg/dL Blood Type O POSITIVE Meds: Medications Generic Name Dose Route Start Last Admin Trade Name Freq PRN Reason Stop Dose Admin Lactated Ringer's 1,000 mls @ 125 mls/hr 05/24/21 14:45 05/24/21 14:58 Ringers, Lactated IV 125 mls/hr ASDIRECTED GA Administration Discontinued Medications Generic Name Dose Route Start Last Admin Trade Name Freq PRN Reason Stop Dose Admin Sodium Chloride 1,000 mls @ 999 mls/hr 05/24/21 13:27 Normal Saline IV 05/24/21 14:27 ONETIME ONE Lactated Ringer's 1,000 mls @ 999 mls/hr 05/24/21 13:30 05/24/21 13:33 Ringers, Lactated IV 05/24/21 14:30 999 mls/hr ONETIME ONE Administration - Radiology Interpretation Free Text/Narrative:: no free air under the diaphragm, flat and upright - Re-Assessments/Exams Free Text/Narrative Re-Assessment/Exam: 05/24/21 13:[address] Will give one liter lactated ringers , check labs and type and screen. Dr. Tolentino aware and requests flat and upright. Vital Signs (72 hours) 05/24/21 13:16 Temperature [ 36.3 C Temporal] Pulse, 70 Peripheral [ Pulse Oximetry] Respiratory 16 Rate Blood Pressure 124/64 [Right Upper Arm] O2 Sat by Pulse 98 Oximetry 05/24/21 14:37 no free noted on lat and upright. stable VSS. maintenance fluids at 125 ml/hr. Call to DR. Tolentino, surgeon, will come see after his case 05/24/21 14:39 05/24/21 15:22 Dr. Tolentino, surgeon, here to see patient. Will discuss with anesthesia about surgery ( colonoscopy) today Departure - Departure Time of Disposition: 15:57 (surgery) Disposition: DC/Tfer to Other 70 Condition: Good Clinical Impression: GI (gastrointestinal hemorrhage) - Discharge Information Referrals: Michaela Nugent PA-C [Primary Care Provider] - Forms: ED Department Discharge Sepsis Event Note (ED) - Evaluation Sepsis Screening Result: No Definite Risk - Focused Exam Vital Signs: Vital Signs Temp Pulse Resp BP Pulse Ox 05/24/21 13:16 36.3 C 70 16 124/64 98 - My Orders Last 24 Hours: My Active Orders 05/24/21 13:50 TYPE AND SCREEN [BBK] Stat 05/24/21 14:45 Lactated Ringers [Ringers, Lactated] 1,000 ml IV ASDIRECTED - Assessment/Plan Last 24 Hours: My Active Orders 05/24/21 13:50 TYPE AND SCREEN [BBK] Stat 05/24/21 14:45 Lactated Ringers [Ringers, Lactated] 1,000 ml IV ASDIRECTED
[2021-05-24 14:12] LABS: ANION GAP 12.1 mmol/L (5-15)
[2021-05-24] MEDS: Lactated Ringers 1,000 ML IV SCH (14:58)
--- NOTE | 2021-05-24 15:34 | CR ---
[id number] RAD/RAD Abd Flat and Upright 2V EXAM: RAD Abd Flat and Upright 2V INDICATION: CONCERN FOR BOWEL PERFORATION/FREE AIR. COMPARISON: None. DISCUSSION: Fibrosis or scarring in the imaged lung bases. Pacemaker leads RA and RV. Sternotomy. No bowel dilation, free air or pneumatosis is identified. Arterial calcifications. IMPRESSION: 1. Normal bowel gas pattern with no free air identified. Moe lAexander MD 05/24/21 1532 Thank you for allowing us to participate in the care of your patient.
[2021-05-24 18:35] VITALS: BP 128/82; PULSE 75
== END 2021-05-24 16:05 | disposition other institution (70) ==
LOC: VM.ED 12:59
DX: K92.2 Gastrointestinal hemorrhage, unspecified (principal); I48.91 Unspecified atrial fibrillation; I25.10 Atherosclerotic heart disease of native coronary artery without angina pectoris; I11.0 Hypertensive heart disease with heart failure; I50.9 Heart failure, unspecified; E78.00 Pure hypercholesterolemia, unspecified; K21.9 Gastro-esophageal reflux disease without esophagitis; E11.21 Type 2 diabetes mellitus with diabetic nephropathy; M19.90 Unspecified osteoarthritis, unspecified site; Z88.8 Allergy status to other drugs, medicaments and biological substances; Z79.4 Long term (current) use of insulin; Z79.82 Long term (current) use of aspirin; Z79.899 Other long term (current) drug therapy
CPT/HCPCS: 36415; 74019; 80048; 85025; 86850; 86900; 86901; 99285; J7120; 99284

== ENCOUNTER 2021-05-24 16:07 | Day surgery (SDC) | payer MEDICARE, OTHER ==
[~2021-05-24 16:07] MED LIST changes: -Lactated Ringers 1,000 ML IV SCH; +Propofol 200 MG/20 ML SDV ONE; +fentaNYL 100 MCG/2 ML SDV ONE
[2021-05-24] MEDS ORDERED: Lactated Ringers 1,000 ML IV SCH (17:00)
[2021-05-24] MEDS ORDERED: ePHEDrine 50 MG/ML SDV ONE (17:12)
[2021-05-24] MEDS ORDERED: Sodium Chloride 0.9% 10 ML Syringe FLUSH PRN (17:40)
[2021-05-24 18:24] VITALS: BP 126/51; PULSE 72
--- NOTE | 2021-05-25 08:16 | OR ---
This was the second colonoscopy done in the afternoon after having rectal bleeding following first scope in the morning. DATE OF SURGERY: 05/24/2021 in late afternoon. REFERRING PROVIDER: Anitha Nugent DO, initially, and this was done while the patient was in the ER and after workup in the ER. PRE-OPERATIVE DIAGNOSIS: Bright red rectal bleeding, status post polypectomy x7 this morning. POST-OPERATIVE DIAGNOSES: 1. No active bleeding noted, but definite evidence of recent bleeding from several of the polypectomy sites. I did suction copious amount of some recent blood and blood clots from the lumen of the colon on the way in and on the way out. Several of the polypectomy sites from this morning do look like they had some recent bleeding, even some of the polypectomies using cold forceps. 2. Hemostatic clips placed at 4 separate sites. a. One clip placed at previous polypectomy site at 80 cm. b. Two hemostatic clips placed at previous cecal polypectomy sites. c. One hemostatic clip placed at previous polypectomy site at 75 cm. d. One hemostatic clip placed at previous polypectomy site at 25 cm. PROCEDURE: Colonoscopy with hemostatic clip placement x4 sites using a total of 5 clips. SURGEON: Nakul Tolentino M.D. ANESTHESIA: Monitored anesthesia care. BOWEL PREP: Good. after irrigation and suction moderate amount of some recent blood including some blood clots from the colonic lumen. Yusuf is a 81-year-old male who was brought to the endoscopy suite after discussing risks and benefits of the procedure. Informed consent was obtained for conscious sedation and colonoscopy with or without biopsy and/or polypectomy. We also discussed possibility of missed lesions. Pre-procedure exam was unremarkable. IV, oxygen, and monitors were placed. The patient was placed in the left lateral decubitus position. Sedation was administered and a digital rectal exam was performed and unremarkable. Colonoscope was passed into the rectum and slowly advanced all the way to the cecum. On the way in, I did initially suspect a couple diverticular sites of bleeding, but this may have just been some clotted blood that settled out within those tics. Once I did get to the polypectomy site at 80 cm from the anal verge, it did look like this one had bled to some degree and was slightly stretched out compared to initial polypectomy this morning. Hemostatic clip x1 was placed. Scope was then advanced all the way to the cecum. The cecal polyp also had looked like it stretched out somewhat and did have clot formed on half of it. This was photographed and then 2 hemostatic clips were placed. There was no active bleeding noted anywhere in the colon, but evidence of recent bleeding from several of the polypectomy sites with clot at the base of them now. The colonoscope was slowly withdrawn and the mucosa was closely observed in a direct circumferential manner. Hemostatic clip was also placed at previous polypectomy site at 75 cm. There was also another hemostatic clip placed at polypectomy site at 25 cm. These did have a clot like plug at the base of the polypectomy site, which definitely seems more than what we would expect even with him taking low-dose aspirin until yesterday. The ascending colon was . The transverse colon was . The descending colon was . The sigmoid colon was . Rectal mucosa was unremarkable. Scope was removed. The patient tolerated the procedure well. The patient was monitored until that baseline status. Discharge instructions were reviewed and the patient was discharged in good condition. COMPLICATIONS: None. TOTAL TIME: 46 minutes. ESTIMATED BLOOD LOSS: Less than 1 mL during the procedure. RECOMMENDATIONS/FOLLOW-UP: We will have the patient hold his aspirin and Plavix for at least a week and we will monitor for any recurrent rectal bleeding. The extent of bleeding from several of the polypectomy sites is suspicious for ongoing Plavix effect. I would like to kindly thank Anitha Nugent for this referral along with the ERs help today with this case. DMB: 05/24/2021 17:35:15 MODL: 05/24/2021 18:26:25 /[id number]
== END 2021-05-24 18:37 | disposition home or self-care (01) ==
LOC: VM.SDS 16:07
PROVIDERS: ATTEND Family Medicine
DX: K62.5 Hemorrhage of anus and rectum (principal); I10 Essential (primary) hypertension; I25.10 Atherosclerotic heart disease of native coronary artery without angina pectoris; E11.21 Type 2 diabetes mellitus with diabetic nephropathy; I50.42 Chronic combined systolic (congestive) and diastolic (congestive) heart failure; I48.91 Unspecified atrial fibrillation; G47.33 Obstructive sleep apnea (adult) (pediatric); E78.5 Hyperlipidemia, unspecified; E11.22 Type 2 diabetes mellitus with diabetic chronic kidney disease; I13.0 Hypertensive heart and chronic kidney disease with heart failure and stage 1 through stage 4 chronic kidney disease, or unspecified chronic kidney disease; N18.30 Chronic kidney disease, stage 3 unspecified; Z79.899 Other long term (current) drug therapy; Z79.82 Long term (current) use of aspirin; Z86.73 Personal history of transient ischemic attack (TIA), and cerebral infarction without residual deficits; Z98.890 Other specified postprocedural states; Z79.4 Long term (current) use of insulin; Z88.8 Allergy status to other drugs, medicaments and biological substances
CPT/HCPCS: 00811; 82947; J2704; J3010; J7120

== ENCOUNTER 2024-05-12 16:04 | Emergency (ER) | payer MEDICARE, OTHER ==
[2024-05-12 16:26] LABS: BASOPHILS PERCENT AUTO 0.5 % (0.2-1.2); EOSINOPHILS ABSOLUTE AUTO 0.1 x10^3/uL (0.0-0.5); EOSINOPHILS PERCENT AUTO 1.5 % (0.0-4.0); HEMOGLOBIN 12.2 g/dL (14.0-18.0); IMMATURE GRAN ABSOLUTE AUTO 0.02 x10^3/uL (0.00-0.07); LYMPHOCYTES ABSOLUTE AUTO 2.9 x10^3/uL (1.0-4.8); LYMPHOCYTES PERCENT AUTO 35.6 % (25.0-50.0); MEAN CORPUSCULAR HEMOGLOBIN 32.4 pg (26.0-32.0); MEAN CORPUSCULAR HGB CONC 34.9 g/dL (32.0-36.0); MEAN CORPUSCULAR VOLUME 92.8 fL (78.0-93.0); MONOCYTES ABSOLUTE AUTO 0.8 x10^3/uL (0.0-0.8); MONOCYTES PERCENT AUTO 10.2 % (2.0-11.0); NEUTROPHILS ABSOLUTE AUTO 4.3 x10^3/uL (1.8-7.7); PLATELET COUNT,PLT 126 x10^3/uL (130-400); RED BLOOD CELL COUNT 3.77 x10^6/uL (4.5-6.0); WHITE BLOOD CELL COUNT,WBC 8.2 x10^3/uL (4.0-10.0)
[2024-05-12 16:46] LABS: A/G RATIO 1.19; ALBUMIN 3.8 g/dL (3.4-5.0); ANION GAP 14.1 mmol/L (5-15); BILIRUBIN TOTAL 0.3 mg/dL (0.2-1.0); CALCIUM 9.4 mg/dL (8.5-10.1); CREATININE 2.2 mg/dL (0.70-1.30); EST CRCL DRUG DOSING (CG) 22.52 mL/min; POTASSIUM,K 4.1 mmol/L (3.5-5.1)
[2024-05-12] MEDS: Lactated Ringers 1,000 ML IV ONE (17:15)
[2024-05-12 18:05] VITALS: BP 113/48; PULSE 71
== END 2024-05-12 18:41 | disposition home or self-care (01) ==
LOC: VM.ED 16:04
DX: I95.2 Hypotension due to drugs (principal); I13.0 Hypertensive heart and chronic kidney disease with heart failure and stage 1 through stage 4 chronic kidney disease, or unspecified chronic kidney disease; I50.9 Heart failure, unspecified; N18.4 Chronic kidney disease, stage 4 (severe); N17.9 Acute kidney failure, unspecified; E11.22 Type 2 diabetes mellitus with diabetic chronic kidney disease; E78.00 Pure hypercholesterolemia, unspecified; I25.10 Atherosclerotic heart disease of native coronary artery without angina pectoris; I48.91 Unspecified atrial fibrillation; Z91.040 Latex allergy status; Z88.8 Allergy status to other drugs, medicaments and biological substances; Z79.899 Other long term (current) drug therapy; Z79.4 Long term (current) use of insulin; Z79.82 Long term (current) use of aspirin; Z79.84 Long term (current) use of oral hypoglycemic drugs; Z95.1 Presence of aortocoronary bypass graft; Z86.73 Personal history of transient ischemic attack (TIA), and cerebral infarction without residual deficits
CPT/HCPCS: 80053; 82947; 83735; 84484; 85025; 93005; 93010; 96360; 99284; 99285; J7120

== ENCOUNTER 2025-08-18 16:31 | Emergency (ER) | payer MEDICARE, OTHER ==
[2025-08-18 17:33] VITALS: BP 116/56; PULSE 66
== END 2025-08-18 18:20 | disposition home or self-care (01) ==
LOC: VM.ED 16:31
DX: S00.03XA Contusion of scalp, initial encounter (principal); S50.312A Abrasion of left elbow, initial encounter; S50.311A Abrasion of right elbow, initial encounter; I11.0 Hypertensive heart disease with heart failure; I50.9 Heart failure, unspecified; E78.00 Pure hypercholesterolemia, unspecified; I25.10 Atherosclerotic heart disease of native coronary artery without angina pectoris; M19.90 Unspecified osteoarthritis, unspecified site; E11.21 Type 2 diabetes mellitus with diabetic nephropathy; Z95.5 Presence of coronary angioplasty implant and graft; Z88.8 Allergy status to other drugs, medicaments and biological substances; Z91.040 Latex allergy status; Z79.4 Long term (current) use of insulin; Z79.82 Long term (current) use of aspirin; Z79.84 Long term (current) use of oral hypoglycemic drugs; Z79.899 Other long term (current) drug therapy; W01.0XXA Fall on same level from slipping, tripping and stumbling without subsequent striking against object, initial encounter
CPT/HCPCS: 70450; 99283; 99284